=== PATIENT | female | born 1965 | race Caucasian/White ===

== ENCOUNTER 2021-11-16 06:40 | Inpatient (IN) | payer BC, MEDICAID ==
[~2021-11-16] VITALS: Ht 165.1 cm; Wt 163.0 kg
[2021-11-16 08:42] LABS: Basophils # (auto) 0.1 10 ^3/uL (0-0.2); Basophils % (auto) 0.4 % (0.0-2.0); Eosinophils # (auto) 0 10 ^3/uL (0-0.8); Eosinophils % (auto) 0.3 % (0.0-7.0); Hematocrit 40.5 % (36.0-46.0); Hemoglobin 12.9 g/dL (12.2-16.2); Lymphocytes # (auto) 0.6 10 ^3/uL (0.4-5.4); Lymphocytes % (auto) 4.9 % (10.0-50.0); Mean Corpuscular Hemoglobin 28.5 pg (28.0-32.0); Mean Corpuscular Hgb Conc. 31.9 g/dL (32.0-36.0); Mean Corpuscular Volume 89.3 fL (80.0-100.0); Monocytes # (auto) 0.6 10 ^3/uL (0-1.3); Monocytes % (auto) 4.7 % (0.0-12.0); Neutrophils # (auto) 11.3 10 ^3/uL (1.6-8.6); Neutrophils % (auto) 89.7 % (37.0-80.0); Red Blood Cells 4.54 10^6/uL (4.0-5.20); Red Cell Distribution Width 15.4 % (11.8-14.3); White Blood Cell 12.6 10^3/uL (4.4-10.8)
[2021-11-16 08:48] LABS: Albumin 3.5 g/dL (3.4-5.0); Calcium 9.1 mg/dL (8.5-10.1); Potassium 4.2 mmol/L (3.5-5.1)
[2021-11-16 08:51] LABS: BUN/Creatinine Ratio 14.6; Bilirubin, Total 0.3 mg/dL (0.2-1.0); Total Protein 7.4 g/dL (6.4-8.2)
[2021-11-16] MEDS ORDERED: SILVER SULFADIAZINE 1 % TOPICAL CREAM 50GM TOP ONE (11:15)
[2021-11-16] MEDS ORDERED: SODIUM CHLORIDE 0.9% 500 ML IV ONE (11:15)
[2021-11-16] MEDS ORDERED: SODIUM CHLORIDE 0.9% 1,000 ML IV ONE (11:15)
[2021-11-16] MEDS ORDERED: CLINDAMYCIN 900MG IV 50 ML IV ONE (11:15)
[2021-11-16] MEDS ORDERED: HYDROcodone-ACET 5/325MG TAB PO ONE (13:15)
[2021-11-16 15:00] LABS: Lactic Acid w/Reflex 2.1 mmol/L (0.4-2.0)
[2021-11-16] MEDS ORDERED: ACETAMINOPHEN 325 MG TAB PO PRN (16:45)
[2021-11-16] MEDS ORDERED: DOCUSATE SOD 100 MG CAP PO PRN (16:45)
[2021-11-16] MEDS ORDERED: PIPERACILLIN-TAZOB 3.375GM 100 ML IV SCH ×2 (16:45→17:15)
[2021-11-16] MEDS ORDERED: ONDANSETRON HCL 4 MG/2 ML VIAL IV PRN (16:45)
[2021-11-16] MEDS ORDERED: VANCOMYCIN PER PHARMACY 0 MG IV SCH (17:45)
[2021-11-16] MEDS ORDERED: PIPERACILLIN-TAZOB 3.375GM 100 ML IV ONE (18:00)
[2021-11-16] MEDS: VANCOMYCIN 1GM/250ML 250 ML IV SCH (18:37)
[2021-11-16] MEDS: HYDROcodone-ACET 5/325MG TAB PO PRN (18:47)
[2021-11-16 23:48] VITALS: BP 130/61
[2021-11-17] MEDS: HYDROcodone-ACET 5/325MG TAB PO PRN ×3 (00:31→21:40)
[2021-11-17] MEDS: GABAPENTIN 300 MG CAP PO SCH ×3 (00:31→21:33)
[2021-11-17] MEDS: PIPERACILLIN-TAZOB 3.375GM 100 ML IV SCH ×4 (00:59→21:33)
[2021-11-17] MEDS: VANCOMYCIN 1GM/250ML 250 ML IV SCH ×2 (04:32→15:07)
[2021-11-17 05:00] VITALS: BP 143/73
[2021-11-17 07:07] LABS: Basophils # (auto) 0 10 ^3/uL (0-0.2); Basophils % (auto) 0.2 % (0.0-2.0); Eosinophils # (auto) 0.1 10 ^3/uL (0-0.8); Eosinophils % (auto) 0.9 % (0.0-7.0); Hematocrit 34.8 % (36.0-46.0); Hemoglobin 11.6 g/dL (12.2-16.2); Lymphocytes # (auto) 0.7 10 ^3/uL (0.4-5.4); Lymphocytes % (auto) 6.4 % (10.0-50.0); Mean Corpuscular Hemoglobin 29.4 pg (28.0-32.0); Mean Corpuscular Hgb Conc. 33.3 g/dL (32.0-36.0); Mean Corpuscular Volume 88.4 fL (80.0-100.0); Monocytes # (auto) 0.7 10 ^3/uL (0-1.3); Monocytes % (auto) 6.2 % (0.0-12.0); Neutrophils # (auto) 9.9 10 ^3/uL (1.6-8.6); Neutrophils % (auto) 86.3 % (37.0-80.0); Nucleated Red Blood Cells % 0.1 %; Red Blood Cells 3.93 10^6/uL (4.0-5.20); Red Cell Distribution Width 15.3 % (11.8-14.3); White Blood Cell 11.5 10^3/uL (4.4-10.8)
[2021-11-17 07:21] LABS: Albumin 2.8 g/dL (3.4-5.0); Calcium 8.6 mg/dL (8.5-10.1)
[2021-11-17 07:24] LABS: BUN/Creatinine Ratio 18.2
[2021-11-17 07:27] LABS: Bilirubin, Total 0.5 mg/dL (0.2-1.0); Total Protein 6.1 g/dL (6.4-8.2)
[2021-11-17 08:49] VITALS: BP 128/85
[2021-11-17] MEDS: ENOXAPARIN SOD 40 MG/0.4 ML SYRINGE SC SCH (09:34)
[2021-11-17] MEDS: METOPROLOL SUCCINATE XL 50 MG TAB PO SCH (09:35)
[2021-11-17] MEDS: SERTRALINE HCL 50 MG TAB PO SCH (09:35)
[2021-11-17 13:07] VITALS: BP 128/72
[2021-11-17] MEDS ORDERED: SIMV10TA84 PO (15:07)
[2021-11-17] MEDS ORDERED: NAPR375T27 PO (15:07)
[2021-11-17] MEDS ORDERED: SERT50TA19 PO (15:07)
[2021-11-17] MEDS ORDERED: METO25TA93 PO (15:07)
[2021-11-17] MEDS ORDERED: HYDR-4902 PO (15:07)
[2021-11-17] MEDS ORDERED: GABA300C10 PO (15:07)
[2021-11-17 16:58] VITALS: BP 143/62
[2021-11-17] MEDS: FUROSEMIDE 40 MG/4 ML VIAL IV SCH (18:39)
[2021-11-17 23:56] VITALS: BP 141/66
[2021-11-18] MEDS: VANCOMYCIN 1GM/250ML 250 ML IV SCH ×3 (01:49→21:08)
[2021-11-18] MEDS: PIPERACILLIN-TAZOB 3.375GM 100 ML IV SCH (05:13)
[2021-11-18] MEDS: FUROSEMIDE 40 MG/4 ML VIAL IV SCH ×2 (05:13→17:25)
[2021-11-18 06:02] VITALS: BP 110/50
[2021-11-18 09:03] VITALS: BP 119/68
[2021-11-18] MEDS: ENOXAPARIN SOD 40 MG/0.4 ML SYRINGE SC SCH (09:10)
[2021-11-18] MEDS: METOPROLOL SUCCINATE XL 50 MG TAB PO SCH (09:11)
[2021-11-18] MEDS: SERTRALINE HCL 50 MG TAB PO SCH (09:11)
[2021-11-18] MEDS: MORPHINE SULFATE INJ 2 MG/ml SYRG IV PRN ×2 (09:12→15:00)
[2021-11-18] MEDS: GABAPENTIN 300 MG CAP PO SCH ×2 (10:28→22:01)
[2021-11-18 12:06] VITALS: BP 134/70
[2021-11-18 17:00] VITALS: BP 125/50
[2021-11-18] MEDS ORDERED: cefTRIAXone 1GM/50ML D5W 50 ML IV ONE (17:30)
[2021-11-18 22:00] VITALS: BP 139/72
[2021-11-19 05:00] VITALS: BP 130/73
[2021-11-19 05:39] LABS: Basophils # (auto) 0.1 10 ^3/uL (0-0.2); Basophils % (auto) 0.8 % (0.0-2.0); Eosinophils # (auto) 0.1 10 ^3/uL (0-0.8); Eosinophils % (auto) 1.3 % (0.0-7.0); Hematocrit 35.2 % (36.0-46.0); Hemoglobin 11.9 g/dL (12.2-16.2); Lymphocytes # (auto) 1.1 10 ^3/uL (0.4-5.4); Lymphocytes % (auto) 12.9 % (10.0-50.0); Mean Corpuscular Hemoglobin 29.6 pg (28.0-32.0); Mean Corpuscular Hgb Conc. 33.9 g/dL (32.0-36.0); Mean Corpuscular Volume 87.2 fL (80.0-100.0); Monocytes # (auto) 0.5 10 ^3/uL (0-1.3); Monocytes % (auto) 5.7 % (0.0-12.0); Neutrophils # (auto) 6.4 10 ^3/uL (1.6-8.6); Neutrophils % (auto) 79.3 % (37.0-80.0); Nucleated Red Blood Cells % 0.1 %; Red Blood Cells 4.04 10^6/uL (4.0-5.20); Red Cell Distribution Width 15.1 % (11.8-14.3); White Blood Cell 8.1 10^3/uL (4.4-10.8)
[2021-11-19] MEDS: FUROSEMIDE 40 MG/4 ML VIAL IV SCH ×2 (05:57→18:00)
[2021-11-19] MEDS: VANCOMYCIN 1GM/250ML 250 ML IV SCH ×2 (05:58→17:00)
[2021-11-19 05:59] LABS: Calcium 8.8 mg/dL (8.5-10.1)
[2021-11-19 06:02] LABS: BUN/Creatinine Ratio 17.1
[2021-11-19 06:39] LABS: Potassium 2.9 mmol/L (3.5-5.1)
[2021-11-19] MEDS ORDERED: POTASSIUM EFFERVESENT TAB 25 MEQ PO ONE (07:30)
[2021-11-19] MEDS ORDERED: POTASSIUM CHL 20MEQ/100ML 100 ML IV ONE (07:30)
[2021-11-19 09:00] VITALS: BP 117/66
[2021-11-19] MEDS: cefTRIAXone 1GM/50ML D5W 50 ML IV SCH (09:00)
[2021-11-19] MEDS: SERTRALINE HCL 50 MG TAB PO SCH (09:09)
[2021-11-19] MEDS: METOPROLOL SUCCINATE XL 50 MG TAB PO SCH (09:09)
[2021-11-19] MEDS: ENOXAPARIN SOD 40 MG/0.4 ML SYRINGE SC SCH (09:10)
[2021-11-19] MEDS: MORPHINE SULFATE INJ 2 MG/ml SYRG IV PRN ×2 (09:12→13:00)
[2021-11-19] MEDS: GABAPENTIN 300 MG CAP PO SCH ×2 (10:00→22:31)
[2021-11-19] MEDS: NYSTATIN TOPICAL POWDER 15GM TOP SCH ×2 (12:00→22:31)
[2021-11-19 13:00] VITALS: BP 123/71
[2021-11-19] MEDS ORDERED: IOHEXOL 350 MG/ML 100ML IJ ONE (13:17)
[2021-11-19 16:55] VITALS: BP 131/81
[2021-11-19 22:00] VITALS: BP 122/74
[2021-11-20] MEDS: VANCOMYCIN 1GM/250ML 250 ML IV SCH ×2 (02:12→15:05)
[2021-11-20 04:52] VITALS: BP 114/72
[2021-11-20] MEDS: FUROSEMIDE 40 MG/4 ML VIAL IV SCH ×2 (05:57→18:00)
[2021-11-20 09:00] VITALS: BP 110/75
[2021-11-20] MEDS: cefTRIAXone 1GM/50ML D5W 50 ML IV SCH (10:00)
[2021-11-20] MEDS: GABAPENTIN 300 MG CAP PO SCH (10:00)
[2021-11-20] MEDS: METOPROLOL SUCCINATE XL 50 MG TAB PO SCH (10:01)
[2021-11-20] MEDS: SERTRALINE HCL 50 MG TAB PO SCH (10:01)
[2021-11-20] MEDS: ENOXAPARIN SOD 40 MG/0.4 ML SYRINGE SC SCH (10:01)
[2021-11-20] MEDS: NYSTATIN TOPICAL POWDER 15GM TOP SCH (10:02)
[2021-11-20 13:00] VITALS: BP 121/73
[2021-11-20] MEDS ORDERED: SULFAMETHOX W/TRIMETH(800/160MG) DS TAB PO ONE (14:30)
[2021-11-20] MEDS ORDERED: SULF400T11 PO (15:10)
[2021-11-20 16:58] VITALS: BP 113/63
== END 2021-11-20 19:00 | disposition home health service (06) | DRG 603 ==
LOC: ER 06:40 → OVERFLOW 16:39 → CENTRAL 23:34
PROVIDERS: ADMIT Internal Medicine; ATTEND Internal Medicine
DX: L03.116 Cellulitis of left lower limb (principal); Z68.43 Body mass index [BMI] 50.0-59.9, adult; E87.2 Acidosis; L03.115 Cellulitis of right lower limb; E66.01 Morbid (severe) obesity due to excess calories; E78.5 Hyperlipidemia, unspecified; F17.210 Nicotine dependence, cigarettes, uncomplicated; F32.A Depression, unspecified; G62.9 Polyneuropathy, unspecified; I10 Essential (primary) hypertension; J44.9 Chronic obstructive pulmonary disease, unspecified; I73.9 Peripheral vascular disease, unspecified; Z20.822 Contact with and (suspected) exposure to COVID-19; I87.2 Venous insufficiency (chronic) (peripheral); Z90.710 Acquired absence of both cervix and uterus
CPT/HCPCS: 36415; 71046; 75635; 80048; 80053; 80202; 82565; 83036; 83605; 83735; 85025; 87040; 87077; 87186; 87205; 93005; 93306; 93925; 96361; 96365; G0378; J0696; J2543; J3480; J3490

== ENCOUNTER 2022-04-07 11:34 | Inpatient (IN) | payer OTHER ==
[~2022-04-07] VITALS: Ht 170.2 cm; Wt 166.5 kg
[~2022-04-07 11:34] MED LIST: GABA300C10 PO; HYDR-4902 PO; METO25TA93 PO; NAPR375T27 PO; SERT50TA19 PO; SIMV10TA84 PO; SULF400T11 PO
[2022-04-07 13:09] LABS: Basophils # (auto) 0.1 10 ^3/uL (0-0.2); Basophils % (auto) 0.7 % (0.0-2.0); Eosinophils # (auto) 0.1 10 ^3/uL (0-0.8); Eosinophils % (auto) 1.5 % (0.0-7.0); Hematocrit 43.8 % (36.0-46.0); Hemoglobin 14.7 g/dL (12.2-16.2); Lymphocytes % (auto) 11.4 % (10.0-50.0); Mean Corpuscular Hgb Conc. 33.6 g/dL (32.0-36.0); Mean Corpuscular Volume 92.5 fL (80.0-100.0); Monocytes # (auto) 0.3 10 ^3/uL (0-1.3); Monocytes % (auto) 3.6 % (0.0-12.0); Neutrophils # (auto) 7.1 10 ^3/uL (1.6-8.6); Neutrophils % (auto) 82.8 % (37.0-80.0); Nucleated Red Blood Cells % 0.3 %; Red Blood Cells 4.73 10^6/uL (4.0-5.20); Red Cell Distribution Width 15.3 % (11.8-14.3); White Blood Cell 8.6 10^3/uL (4.4-10.8)
[2022-04-07 13:12] LABS: Albumin 4.3 g/dL (3.4-5.0); Calcium 9.3 mg/dL (8.5-10.1); Potassium 3.8 mmol/L (3.5-5.1)
[2022-04-07 13:15] LABS: BUN/Creatinine Ratio 15.9; Bilirubin, Total 0.6 mg/dL (0.2-1.0); Total Protein 7.8 g/dL (6.4-8.2)
[2022-04-07 14:45] LABS: Urine Bacteria FEW /hpf (None Seen); Urine Blood Negative /uL (Negative); Urine Specific Gravity 1.007 (1.001-1.035); Urine WBC 8 /hpf (0 - 5)
[2022-04-07] MEDS ORDERED: HYDROcodone-ACET 10/325MG TAB PO ONE (14:45)
[2022-04-07 15:49] LABS: Magnesium 2.2 mg/dL (1.6-2.6)
[2022-04-07 15:58] LABS: CRP High Sensitivity 6.66 mg/dL (< 0.3)
[2022-04-07] MEDS ORDERED: ACETAMINOPHEN 325 MG TAB PO PRN (16:30)
[2022-04-07] MEDS ORDERED: ONDANSETRON HCL 4 MG/2 ML VIAL IV PRN (16:30)
[2022-04-07] MEDS ORDERED: DOCUSATE SOD 100 MG CAP PO PRN (16:30)
[2022-04-07] MEDS: CLINDAMYCIN 600MG IV 50 ML IV SCH (18:08)
[2022-04-07] MEDS: HYDROcodone-ACET 5/325MG TAB PO PRN (20:10)
[2022-04-07] MEDS: GABAPENTIN 300 MG CAP PO SCH (23:16)
[2022-04-07] MEDS: cefTRIAXone 1GM/50ML D5W 50 ML IV SCH (23:40)
[2022-04-08] MEDS: HYDROcodone-ACET 5/325MG TAB PO PRN ×4 (00:04→22:13)
[2022-04-08 00:30] VITALS: BP 153/72
[2022-04-08] MEDS: CLINDAMYCIN 600MG IV 50 ML IV SCH ×3 (00:47→16:49)
[2022-04-08 05:00] VITALS: BP 154/82
[2022-04-08 06:11] LABS: Basophils # (auto) 0 10 ^3/uL (0-0.2); Basophils % (auto) 0.4 % (0.0-2.0); Eosinophils # (auto) 0.1 10 ^3/uL (0-0.8); Eosinophils % (auto) 1.5 % (0.0-7.0); Hematocrit 40.9 % (36.0-46.0); Hemoglobin 13.7 g/dL (12.2-16.2); Lymphocytes # (auto) 0.9 10 ^3/uL (0.4-5.4); Lymphocytes % (auto) 10.5 % (10.0-50.0); Mean Corpuscular Hemoglobin 31.4 pg (28.0-32.0); Mean Corpuscular Hgb Conc. 33.4 g/dL (32.0-36.0); Monocytes # (auto) 0.5 10 ^3/uL (0-1.3); Monocytes % (auto) 5.8 % (0.0-12.0); Neutrophils % (auto) 81.8 % (37.0-80.0); Nucleated Red Blood Cells % 0.7 %; Red Blood Cells 4.35 10^6/uL (4.0-5.20); Red Cell Distribution Width 15.1 % (11.8-14.3); White Blood Cell 8.6 10^3/uL (4.4-10.8)
[2022-04-08 06:22] LABS: Albumin 3.5 g/dL (3.4-5.0); BUN/Creatinine Ratio 16.3; Bilirubin, Total 0.5 mg/dL (0.2-1.0); Calcium 8.7 mg/dL (8.5-10.1); Total Protein 6.8 g/dL (6.4-8.2)
[2022-04-08 09:00] VITALS: BP 142/82
[2022-04-08] MEDS: GABAPENTIN 300 MG CAP PO SCH ×2 (09:33→21:49)
[2022-04-08] MEDS: SERTRALINE HCL 50 MG TAB PO SCH (09:34)
[2022-04-08] MEDS: METOPROLOL SUCCINATE XL 50 MG TAB PO SCH (09:49)
[2022-04-08] MEDS ORDERED: FUROSEMIDE 20 MG/2 ML VIAL IV SCH (10:00)
[2022-04-08] MEDS ORDERED: PANTOPRAZOLE 40 MG/10 ML VIAL INJ IV SCH (10:00)
[2022-04-08] MEDS: PATIENTS OWN MEDICATION (Simvastatin 10 MG) PO SCH (10:00)
[2022-04-08 12:54] VITALS: BP 147/103
[2022-04-08 16:48] VITALS: BP 107/56
[2022-04-08] MEDS: cefTRIAXone 1GM/50ML D5W 50 ML IV SCH (21:50)
[2022-04-08] MEDS: FUROSEMIDE 20 MG/2 ML VIAL IV SCH (21:50)
[2022-04-08 22:00] VITALS: BP 117/63
[2022-04-09] MEDS: CLINDAMYCIN 600MG IV 50 ML IV SCH ×3 (00:43→16:42)
[2022-04-09 04:30] VITALS: BP 129/72
[2022-04-09] MEDS: HYDROcodone-ACET 5/325MG TAB PO PRN ×3 (06:59→22:24)
[2022-04-09] MEDS: GABAPENTIN 300 MG CAP PO SCH ×2 (08:25→22:18)
[2022-04-09] MEDS: METOPROLOL SUCCINATE XL 50 MG TAB PO SCH (08:25)
[2022-04-09] MEDS: FUROSEMIDE 20 MG/2 ML VIAL IV SCH ×2 (08:25→22:20)
[2022-04-09] MEDS: SERTRALINE HCL 50 MG TAB PO SCH (08:25)
[2022-04-09] MEDS: PATIENTS OWN MEDICATION (Simvastatin 10 MG) PO SCH (08:26)
[2022-04-09 08:30] VITALS: BP 144/88
[2022-04-09 12:37] VITALS: BP 134/77
[2022-04-09 17:00] VITALS: BP 100/69
[2022-04-09 20:00] VITALS: BP 149/74
[2022-04-09 22:00] VITALS: BP 149/74
[2022-04-09] MEDS: cefTRIAXone 1GM/50ML D5W 50 ML IV SCH (22:29)
[2022-04-10] MEDS: CLINDAMYCIN 600MG IV 50 ML IV SCH ×3 (00:31→17:08)
[2022-04-10 05:00] VITALS: BP 144/68
[2022-04-10] MEDS: HYDROcodone-ACET 5/325MG TAB PO PRN ×3 (07:00→22:26)
[2022-04-10 09:00] VITALS: BP 142/92
[2022-04-10] MEDS: SERTRALINE HCL 50 MG TAB PO SCH (09:29)
[2022-04-10] MEDS: GABAPENTIN 300 MG CAP PO SCH ×2 (09:29→22:27)
[2022-04-10] MEDS: FUROSEMIDE 20 MG/2 ML VIAL IV SCH ×2 (09:30→22:27)
[2022-04-10] MEDS: METOPROLOL SUCCINATE XL 50 MG TAB PO SCH (09:30)
[2022-04-10] MEDS: PATIENTS OWN MEDICATION (Simvastatin 10 MG) PO SCH (10:00)
[2022-04-10 13:00] VITALS: BP 140/88
[2022-04-10 16:54] VITALS: BP 149/88
[2022-04-10 22:00] VITALS: BP 128/74
[2022-04-10] MEDS: cefTRIAXone 1GM/50ML D5W 50 ML IV SCH (22:28)
[2022-04-11] MEDS: CLINDAMYCIN 600MG IV 50 ML IV SCH ×3 (01:12→17:38)
[2022-04-11 05:00] VITALS: BP 137/78
[2022-04-11 09:20] VITALS: BP 136/83
[2022-04-11] MEDS: FUROSEMIDE 20 MG/2 ML VIAL IV SCH ×2 (09:31→22:01)
[2022-04-11] MEDS: GABAPENTIN 300 MG CAP PO SCH ×2 (09:31→22:00)
[2022-04-11] MEDS: METOPROLOL SUCCINATE XL 50 MG TAB PO SCH (09:32)
[2022-04-11] MEDS: SERTRALINE HCL 50 MG TAB PO SCH (09:32)
[2022-04-11] MEDS: HYDROcodone-ACET 5/325MG TAB PO PRN ×2 (09:46→20:09)
[2022-04-11] MEDS: PATIENTS OWN MEDICATION (Simvastatin 10 MG) PO SCH (10:00)
[2022-04-11 12:52] VITALS: BP 145/79
[2022-04-11 17:17] VITALS: BP 143/75
[2022-04-11 21:30] VITALS: BP 140/69
[2022-04-11] MEDS: cefTRIAXone 1GM/50ML D5W 50 ML IV SCH (22:02)
[2022-04-12] MEDS: CLINDAMYCIN 600MG IV 50 ML IV SCH ×3 (00:24→18:07)
[2022-04-12 05:00] VITALS: BP 139/61
[2022-04-12] MEDS: HYDROcodone-ACET 5/325MG TAB PO PRN ×2 (05:49→19:52)
[2022-04-12 09:00] VITALS: BP 101/45
[2022-04-12] MEDS: PATIENTS OWN MEDICATION (Simvastatin 10 MG) PO SCH (09:34)
[2022-04-12] MEDS: FUROSEMIDE 20 MG/2 ML VIAL IV SCH ×2 (09:34→21:25)
[2022-04-12] MEDS: GABAPENTIN 300 MG CAP PO SCH ×2 (09:45→21:17)
[2022-04-12] MEDS: SERTRALINE HCL 50 MG TAB PO SCH (10:00)
[2022-04-12] MEDS: METOPROLOL SUCCINATE XL 50 MG TAB PO SCH ×2 (10:00→18:08)
[2022-04-12 13:00] VITALS: BP 132/82
[2022-04-12 17:03] VITALS: BP 146/74
[2022-04-12 22:00] VITALS: BP 130/66
[2022-04-12] MEDS: cefTRIAXone 1GM/50ML D5W 50 ML IV SCH (22:29)
[2022-04-13] MEDS: CLINDAMYCIN 600MG IV 50 ML IV SCH ×2 (01:27→09:09)
[2022-04-13 05:00] VITALS: BP 138/71
[2022-04-13] MEDS: HYDROcodone-ACET 5/325MG TAB PO PRN (05:20)
[2022-04-13 08:10] VITALS: BP 113/66
[2022-04-13 09:00] VITALS: BP 113/66
[2022-04-13] MEDS: FUROSEMIDE 20 MG/2 ML VIAL IV SCH (09:10)
[2022-04-13] MEDS: GABAPENTIN 300 MG CAP PO SCH (09:10)
[2022-04-13] MEDS: METOPROLOL SUCCINATE XL 50 MG TAB PO SCH (09:11)
[2022-04-13] MEDS: SERTRALINE HCL 50 MG TAB PO SCH (09:12)
[2022-04-13] MEDS: PATIENTS OWN MEDICATION (Simvastatin 10 MG) PO SCH (09:12)
[2022-04-13] MEDS ORDERED: FURO1TAB33 PO (12:59)
[2022-04-13] MEDS ORDERED: GABA300C10 PO (12:59)
[2022-04-13] MEDS ORDERED: CLIN300C8 PO (12:59)
[2022-04-13 13:36] VITALS: BP 132/92
== END 2022-04-13 14:52 | disposition home or self-care (01) | DRG 603 ==
LOC: ER 11:34 → OVERFLOW 16:28 → EAST 23:42
PROVIDERS: ADMIT Nurse Practitioner Family; ATTEND Internal Medicine
DX: L03.115 Cellulitis of right lower limb (principal); I10 Essential (primary) hypertension; L03.116 Cellulitis of left lower limb; I73.9 Peripheral vascular disease, unspecified; J44.9 Chronic obstructive pulmonary disease, unspecified; I87.8 Other specified disorders of veins; F17.210 Nicotine dependence, cigarettes, uncomplicated; E66.9 Obesity, unspecified; R60.0 Localized edema; Z20.822 Contact with and (suspected) exposure to COVID-19; Z90.710 Acquired absence of both cervix and uterus
CPT/HCPCS: 36415; 80053; 81001; 83735; 83880; 84484; 85025; 86141; 87040; 87426; 93970; 96365; C9113; G0378; J0696; J3490

== ENCOUNTER 2022-05-29 16:14 | Inpatient (IN) | payer OTHER ==
[~2022-05-29] VITALS: Ht 167.6 cm; Wt 166.0 kg
[~2022-05-29 16:14] MED LIST changes: +CLIN300C8 PO; +FURO1TAB33 PO; -SULF400T11 PO
[2022-05-29 17:12] LABS: Basophils # (auto) 0.1 10 ^3/uL (0-0.2); Basophils % (auto) 1.1 % (0.0-2.0); Eosinophils # (auto) 0.1 10 ^3/uL (0-0.8); Hematocrit 39.3 % (36.0-46.0); Hemoglobin 13.7 g/dL (12.2-16.2); Lymphocytes # (auto) 0.9 10 ^3/uL (0.4-5.4); Lymphocytes % (auto) 9.6 % (10.0-50.0); Mean Corpuscular Hemoglobin 31.7 pg (28.0-32.0); Mean Corpuscular Hgb Conc. 34.9 g/dL (32.0-36.0); Mean Corpuscular Volume 90.9 fL (80.0-100.0); Monocytes # (auto) 0.4 10 ^3/uL (0-1.3); Monocytes % (auto) 4.3 % (0.0-12.0); Neutrophils # (auto) 7.5 10 ^3/uL (1.6-8.6); Nucleated Red Blood Cells % 0.1 %; Red Blood Cells 4.32 10^6/uL (4.0-5.20); White Blood Cell 8.9 10^3/uL (4.4-10.8)
[2022-05-29 17:42] LABS: Albumin 3.8 g/dL (3.4-5.0); Calcium 9.4 mg/dL (8.5-10.1); Potassium 3.6 mmol/L (3.5-5.1)
[2022-05-29 17:46] LABS: BUN/Creatinine Ratio 15.1; Bilirubin, Total 0.6 mg/dL (0.2-1.0); Total Protein 8.2 g/dL (6.4-8.2)
[2022-05-29] MEDS ORDERED: FUROSEMIDE 40 MG/4 ML VIAL IV ONE (19:00)
[2022-05-29] MEDS ORDERED: AZITHROMYCIN 500MG/ 250ML 250 ML IV ONE (19:00)
[2022-05-29] MEDS ORDERED: ALBUTEROL SULF 2.5 MG/0.5ML(0.5%) NEB SOLN NEB ONE (19:00)
[2022-05-29] MEDS ORDERED: cefTRIAXone 1GM/50ML D5W 50 ML IV ONE (19:00)
[2022-05-29] MEDS ORDERED: ONDANSETRON HCL 4 MG/2 ML VIAL IV PRN (20:00)
[2022-05-29] MEDS ORDERED: ACETAMINOPHEN 325 MG TAB PO PRN (20:00)
[2022-05-29] MEDS ORDERED: TEMAZEPAM 15 MG CAP PO PRN (20:00)
[2022-05-29] MEDS ORDERED: ALBUTEROL SULF 2.5 MG/0.5ML(0.5%) NEB SOLN NEB PRN (20:00)
[2022-05-29 20:55] VITALS: BP 153/98
[2022-05-29] MEDS ORDERED: CLINDAMYCIN 300MG IV 100 ML IV SCH (22:00)
[2022-05-30] MEDS: ATORVASTATIN 20 MG TAB PO SCH ×2 (00:31→21:11)
[2022-05-30] MEDS: GABAPENTIN 300 MG CAP PO SCH ×4 (00:32→21:11)
[2022-05-30] MEDS: HYDROcodone-ACET 5/325MG TAB PO PRN ×3 (00:32→14:07)
[2022-05-30 05:48] LABS: Urine Bacteria NONE SEEN /hpf (None Seen); Urine Blood Negative /uL (Negative); Urine Hyaline Cast FEW /lpf (0 - 2); Urine Specific Gravity 1.007 (1.001-1.035); Urine WBC 1 /hpf (0 - 5)
[2022-05-30] MEDS: FUROSEMIDE 20 MG/2 ML VIAL IV SCH ×2 (05:54→18:36)
[2022-05-30 06:10] LABS: Basophils # (auto) 0 10 ^3/uL (0-0.2); Basophils % (auto) 0.5 % (0.0-2.0); Eosinophils # (auto) 0.1 10 ^3/uL (0-0.8); Hematocrit 24.6 % (36.0-46.0); Hemoglobin 7.9 g/dL (12.2-16.2); Lymphocytes # (auto) 0.5 10 ^3/uL (0.4-5.4); Lymphocytes % (auto) 7.7 % (10.0-50.0); Mean Corpuscular Hemoglobin 31.9 pg (28.0-32.0); Mean Corpuscular Hgb Conc. 32.3 g/dL (32.0-36.0); Monocytes # (auto) 0.4 10 ^3/uL (0-1.3); Monocytes % (auto) 5.4 % (0.0-12.0); Neutrophils # (auto) 5.6 10 ^3/uL (1.6-8.6); Neutrophils % (auto) 85.4 % (37.0-80.0); Nucleated Red Blood Cells % 0.5 %; Red Blood Cells 2.48 10^6/uL (4.0-5.20); Red Cell Distribution Width 17.7 % (11.8-14.3); White Blood Cell 6.5 10^3/uL (4.4-10.8)
[2022-05-30] MEDS ORDERED: CLINDAMYCIN 300MG IV 100 ML IV SCH (10:00)
[2022-05-30] MEDS: SERTRALINE HCL 50 MG TAB PO SCH (10:45)
[2022-05-30] MEDS: METOPROLOL SUCCINATE XL 50 MG TAB PO SCH (10:48)
[2022-05-30] MEDS: ENOXAPARIN SOD 40 MG/0.4 ML SYRINGE SC SCH (10:49)
[2022-05-30 12:00] VITALS: BP 129/71
[2022-05-30] MEDS: SILVER SULFADIAZINE 1 % TOPICAL CREAM 50GM TOP SCH (13:00)
[2022-05-30] MEDS ORDERED: VANCOMYCIN PER PHARMACY 0 MG IV SCH (14:30)
[2022-05-30] MEDS ORDERED: VANCOMYCIN 1GM/250ML 250 ML IV ONE (15:00)
[2022-05-30 16:52] VITALS: BP 124/81
[2022-05-30 22:00] VITALS: BP 120/67
[2022-05-31] MEDS: VANCOMYCIN 1GM/250ML 250 ML IV SCH ×3 (01:34→22:54)
[2022-05-31 05:00] VITALS: BP 108/63
[2022-05-31] MEDS: GABAPENTIN 300 MG CAP PO SCH ×4 (05:24→21:49)
[2022-05-31] MEDS: FUROSEMIDE 20 MG/2 ML VIAL IV SCH ×2 (05:25→17:29)
[2022-05-31 06:49] LABS: Basophils # (auto) 0 10 ^3/uL (0-0.2); Basophils % (auto) 0.3 % (0.0-2.0); Eosinophils # (auto) 0.1 10 ^3/uL (0-0.8); Eosinophils % (auto) 1.2 % (0.0-7.0); Hematocrit 38.1 % (36.0-46.0); Hemoglobin 12.9 g/dL (12.2-16.2); Lymphocytes # (auto) 0.7 10 ^3/uL (0.4-5.4); Lymphocytes % (auto) 7.2 % (10.0-50.0); Mean Corpuscular Hemoglobin 31.3 pg (28.0-32.0); Mean Corpuscular Hgb Conc. 33.8 g/dL (32.0-36.0); Mean Corpuscular Volume 92.5 fL (80.0-100.0); Monocytes # (auto) 0.4 10 ^3/uL (0-1.3); Monocytes % (auto) 4.8 % (0.0-12.0); Neutrophils % (auto) 86.5 % (37.0-80.0); Nucleated Red Blood Cells % 0.2 %; Red Blood Cells 4.12 10^6/uL (4.0-5.20); Red Cell Distribution Width 17.2 % (11.8-14.3); White Blood Cell 9.2 10^3/uL (4.4-10.8)
[2022-05-31 07:27] LABS: Potassium 3.4 mmol/L (3.5-5.1)
[2022-05-31 07:35] LABS: BUN/Creatinine Ratio 15.8; Calcium 9.2 mg/dL (8.5-10.1)
[2022-05-31 08:39] VITALS: BP 130/69
[2022-05-31] MEDS: METOPROLOL SUCCINATE XL 50 MG TAB PO SCH (09:32)
[2022-05-31] MEDS: SERTRALINE HCL 50 MG TAB PO SCH (09:32)
[2022-05-31] MEDS: ENOXAPARIN SOD 40 MG/0.4 ML SYRINGE SC SCH (09:32)
[2022-05-31] MEDS: levoFLOXacin 500MG 100 ML IV SCH (09:32)
[2022-05-31] MEDS: HYDROcodone-ACET 5/325MG TAB PO PRN (09:33)
[2022-05-31] MEDS: SILVER SULFADIAZINE 1 % TOPICAL CREAM 50GM TOP SCH (09:33)
[2022-05-31 14:30] VITALS: BP 127/64
[2022-05-31] MEDS ORDERED: POTASSIUM EFFERVESENT TAB 25 MEQ PO ONE (14:30)
[2022-05-31 17:17] VITALS: BP 134/70
[2022-05-31] MEDS: ATORVASTATIN 20 MG TAB PO SCH (21:49)
[2022-05-31 22:00] VITALS: BP 137/68
[2022-06-01 05:00] VITALS: BP 133/66
[2022-06-01] MEDS: GABAPENTIN 300 MG CAP PO SCH ×3 (05:34→21:19)
[2022-06-01] MEDS: FUROSEMIDE 20 MG/2 ML VIAL IV SCH ×2 (05:35→17:28)
[2022-06-01 06:12] LABS: Basophils # (auto) 0 10 ^3/uL (0-0.2); Basophils % (auto) 0.4 % (0.0-2.0); Eosinophils # (auto) 0.2 10 ^3/uL (0-0.8); Eosinophils % (auto) 2.2 % (0.0-7.0); Hematocrit 39.3 % (36.0-46.0); Hemoglobin 13.1 g/dL (12.2-16.2); Lymphocytes # (auto) 1.1 10 ^3/uL (0.4-5.4); Lymphocytes % (auto) 12.4 % (10.0-50.0); Mean Corpuscular Hemoglobin 30.9 pg (28.0-32.0); Mean Corpuscular Hgb Conc. 33.3 g/dL (32.0-36.0); Mean Corpuscular Volume 92.8 fL (80.0-100.0); Monocytes # (auto) 0.5 10 ^3/uL (0-1.3); Monocytes % (auto) 5.4 % (0.0-12.0); Neutrophils % (auto) 79.6 % (37.0-80.0); Nucleated Red Blood Cells % 0.3 %; Red Blood Cells 4.23 10^6/uL (4.0-5.20); Red Cell Distribution Width 17.2 % (11.8-14.3); White Blood Cell 8.8 10^3/uL (4.4-10.8)
[2022-06-01 06:28] LABS: Calcium 8.9 mg/dL (8.5-10.1); Potassium 3.9 mmol/L (3.5-5.1)
[2022-06-01 09:00] VITALS: BP 124/72
[2022-06-01] MEDS: VANCOMYCIN 1GM/250ML 250 ML IV SCH ×2 (09:17→17:28)
[2022-06-01] MEDS: METOPROLOL SUCCINATE XL 50 MG TAB PO SCH (11:20)
[2022-06-01] MEDS: levoFLOXacin 500MG 100 ML IV SCH (11:20)
[2022-06-01] MEDS: SERTRALINE HCL 50 MG TAB PO SCH (11:21)
[2022-06-01] MEDS: ENOXAPARIN SOD 40 MG/0.4 ML SYRINGE SC SCH (11:21)
[2022-06-01] MEDS: SILVER SULFADIAZINE 1 % TOPICAL CREAM 50GM TOP SCH (11:21)
[2022-06-01 13:00] VITALS: BP 150/88
[2022-06-01 17:00] VITALS: BP 121/73
[2022-06-01 20:00] VITALS: BP 135/70
[2022-06-01] MEDS: ATORVASTATIN 20 MG TAB PO SCH (21:19)
[2022-06-01] MEDS: HYDROcodone-ACET 5/325MG TAB PO PRN (21:21)
[2022-06-01 22:00] VITALS: BP 135/70
[2022-06-02] MEDS: VANCOMYCIN 1GM/250ML 250 ML IV SCH ×2 (04:05→14:19)
[2022-06-02] MEDS: HYDROcodone-ACET 5/325MG TAB PO PRN ×3 (04:11→22:30)
[2022-06-02 05:00] VITALS: BP 114/69
[2022-06-02] MEDS: GABAPENTIN 300 MG CAP PO SCH ×3 (05:35→22:26)
[2022-06-02] MEDS: FUROSEMIDE 20 MG/2 ML VIAL IV SCH ×2 (05:36→17:08)
[2022-06-02] MEDS: diphenhdrAMINE HCL 25 MG CAP PO PRN ×3 (05:42→19:17)
[2022-06-02 08:58] VITALS: BP 103/52
[2022-06-02] MEDS: levoFLOXacin 500MG 100 ML IV SCH (09:15)
[2022-06-02] MEDS: ENOXAPARIN SOD 40 MG/0.4 ML SYRINGE SC SCH (09:15)
[2022-06-02] MEDS: METOPROLOL SUCCINATE XL 50 MG TAB PO SCH (09:16)
[2022-06-02] MEDS: SERTRALINE HCL 50 MG TAB PO SCH (09:16)
[2022-06-02] MEDS: SILVER SULFADIAZINE 1 % TOPICAL CREAM 50GM TOP SCH (09:24)
[2022-06-02 13:32] VITALS: BP 114/62
[2022-06-02 17:00] VITALS: BP 109/67
[2022-06-02 21:12] VITALS: BP 125/83
[2022-06-02] MEDS: ATORVASTATIN 20 MG TAB PO SCH (22:26)
[2022-06-02 22:50] VITALS: BP 102/40
[2022-06-03] MEDS: VANCOMYCIN 1GM/250ML 250 ML IV SCH ×2 (00:05→10:05)
[2022-06-03 04:51] VITALS: BP 106/57
[2022-06-03 06:49] LABS: Calcium 9.4 mg/dL (8.5-10.1); Potassium 3.6 mmol/L (3.5-5.1)
[2022-06-03] MEDS: GABAPENTIN 300 MG CAP PO SCH ×3 (07:02→21:19)
[2022-06-03] MEDS: FUROSEMIDE 20 MG/2 ML VIAL IV SCH ×2 (07:02→17:55)
[2022-06-03] MEDS: diphenhdrAMINE HCL 25 MG CAP PO PRN ×2 (07:20→15:24)
[2022-06-03] MEDS: HYDROcodone-ACET 5/325MG TAB PO PRN ×3 (08:22→21:20)
[2022-06-03 09:00] VITALS: BP 123/70
[2022-06-03] MEDS: SERTRALINE HCL 50 MG TAB PO SCH (10:04)
[2022-06-03] MEDS: ENOXAPARIN SOD 40 MG/0.4 ML SYRINGE SC SCH (10:04)
[2022-06-03] MEDS: levoFLOXacin 500MG 100 ML IV SCH (10:04)
[2022-06-03] MEDS: METOPROLOL SUCCINATE XL 50 MG TAB PO SCH (10:04)
[2022-06-03] MEDS: SILVER SULFADIAZINE 1 % TOPICAL CREAM 50GM TOP SCH (10:05)
[2022-06-03 13:26] VITALS: BP 106/60
[2022-06-03 17:00] VITALS: BP 124/74
[2022-06-03] MEDS: ATORVASTATIN 20 MG TAB PO SCH (21:19)
[2022-06-03 22:00] VITALS: BP 125/62
[2022-06-04] MEDS: VANCOMYCIN 1GM/250ML 250 ML IV SCH ×2 (03:56→22:15)
[2022-06-04 05:00] VITALS: BP 116/64
[2022-06-04] MEDS: FUROSEMIDE 20 MG/2 ML VIAL IV SCH ×2 (06:38→17:09)
[2022-06-04] MEDS: diphenhdrAMINE HCL 25 MG CAP PO PRN ×3 (06:38→23:44)
[2022-06-04] MEDS: GABAPENTIN 300 MG CAP PO SCH ×3 (06:38→22:15)
[2022-06-04] MEDS: ENOXAPARIN SOD 40 MG/0.4 ML SYRINGE SC SCH (08:51)
[2022-06-04] MEDS: levoFLOXacin 500MG 100 ML IV SCH (08:51)
[2022-06-04] MEDS: METOPROLOL SUCCINATE XL 50 MG TAB PO SCH (08:53)
[2022-06-04] MEDS: SILVER SULFADIAZINE 1 % TOPICAL CREAM 50GM TOP SCH (08:53)
[2022-06-04] MEDS: SERTRALINE HCL 50 MG TAB PO SCH (08:53)
[2022-06-04 09:03] VITALS: BP 110/65
[2022-06-04 13:00] VITALS: BP 124/58
[2022-06-04] MEDS: HYDROcodone-ACET 5/325MG TAB PO PRN (13:15)
[2022-06-04] MEDS: Juven Fruit Punch Powder PACKET 28.8gm PO SCH (17:02)
[2022-06-04 17:22] VITALS: BP 134/69
[2022-06-04 22:00] VITALS: BP 109/61
[2022-06-04] MEDS: ATORVASTATIN 20 MG TAB PO SCH (22:15)
[2022-06-05 04:00] VITALS: BP 111/69
[2022-06-05] MEDS: diphenhdrAMINE HCL 25 MG CAP PO PRN (06:56)
[2022-06-05] MEDS: FUROSEMIDE 20 MG/2 ML VIAL IV SCH (06:56)
[2022-06-05] MEDS: GABAPENTIN 300 MG CAP PO SCH ×3 (06:56→21:30)
[2022-06-05 09:11] VITALS: BP 119/94
[2022-06-05] MEDS: SERTRALINE HCL 50 MG TAB PO SCH (09:26)
[2022-06-05] MEDS: METOPROLOL SUCCINATE XL 50 MG TAB PO SCH (09:29)
[2022-06-05] MEDS: levoFLOXacin 500MG 100 ML IV SCH (09:30)
[2022-06-05] MEDS: ENOXAPARIN SOD 40 MG/0.4 ML SYRINGE SC SCH (09:30)
[2022-06-05] MEDS: SILVER SULFADIAZINE 1 % TOPICAL CREAM 50GM TOP SCH (09:31)
[2022-06-05] MEDS: Juven Fruit Punch Powder PACKET 28.8gm PO SCH ×2 (09:31→19:35)
[2022-06-05 12:30] VITALS: BP 87/44
[2022-06-05 13:48] VITALS: BP 100/59
[2022-06-05 17:28] VITALS: BP 104/41
[2022-06-05] MEDS: VANCOMYCIN 1GM/250ML 250 ML IV SCH (19:35)
[2022-06-05] MEDS: ATORVASTATIN 20 MG TAB PO SCH (21:30)
[2022-06-05] MEDS: HYDROcodone-ACET 5/325MG TAB PO PRN (21:35)
[2022-06-05 22:00] VITALS: BP 93/47
[2022-06-06 05:00] VITALS: BP 110/70
[2022-06-06] MEDS: GABAPENTIN 300 MG CAP PO SCH ×2 (06:21→15:11)
[2022-06-06 06:26] LABS: Potassium 3.4 mmol/L (3.5-5.1)
[2022-06-06 06:34] LABS: Albumin 3.2 g/dL (3.4-5.0); BUN/Creatinine Ratio 26.7 (10.0-20.0); Bilirubin, Total 0.5 mg/dL (0.2-1.0); Calcium 9.1 mg/dL (8.5-10.1); Total Protein 7.8 g/dL (6.4-8.2)
[2022-06-06 09:00] VITALS: BP 112/71
[2022-06-06] MEDS: SERTRALINE HCL 50 MG TAB PO SCH (09:10)
[2022-06-06] MEDS: ENOXAPARIN SOD 40 MG/0.4 ML SYRINGE SC SCH (09:10)
[2022-06-06] MEDS: METOPROLOL SUCCINATE XL 50 MG TAB PO SCH (09:17)
[2022-06-06] MEDS: diphenhdrAMINE HCL 25 MG CAP PO PRN ×2 (09:17→10:51)
[2022-06-06] MEDS: VANCOMYCIN 1GM/250ML 250 ML IV SCH (09:18)
[2022-06-06] MEDS: Juven Fruit Punch Powder PACKET 28.8gm PO SCH ×2 (09:18→18:00)
[2022-06-06] MEDS ORDERED: FUROSEMIDE 20 MG/2 ML VIAL IV SCH (10:00)
[2022-06-06] MEDS: SILVER SULFADIAZINE 1 % TOPICAL CREAM 50GM TOP SCH (10:51)
[2022-06-06] MEDS: levoFLOXacin 500MG 100 ML IV SCH (10:51)
[2022-06-06] MEDS: HYDROcodone-ACET 5/325MG TAB PO PRN ×2 (11:01→12:38)
[2022-06-06] MEDS ORDERED: HYDR-4902 PO (11:39)
[2022-06-06] MEDS ORDERED: SACC1CAP3 PO (11:39)
[2022-06-06] MEDS ORDERED: CLIN300C8 PO (11:39)
[2022-06-06] MEDS ORDERED: GAUZMIS XX (12:39)
[2022-06-06] MEDS ORDERED: POTASSIUM CHL 20 Meq TABLET PO ONE (12:45)
[2022-06-06 13:00] VITALS: BP 124/56
[2022-06-06 16:31] VITALS: BP 112/71
== END 2022-06-06 17:25 | disposition home health service (06) | DRG 603 ==
LOC: ER 16:14 → OVERFLOW 20:03 → CENTRAL 05-30 11:19
PROVIDERS: ADMIT Nurse Practitioner; ATTEND Nurse Practitioner Acute Care
DX: L03.115 Cellulitis of right lower limb (principal); J44.1 Chronic obstructive pulmonary disease with (acute) exacerbation; Z68.44 Body mass index [BMI] 60.0-69.9, adult; L03.116 Cellulitis of left lower limb; I10 Essential (primary) hypertension; E66.01 Morbid (severe) obesity due to excess calories; F17.210 Nicotine dependence, cigarettes, uncomplicated; Z20.822 Contact with and (suspected) exposure to COVID-19; E78.5 Hyperlipidemia, unspecified; Z90.710 Acquired absence of both cervix and uterus; Z82.49 Family history of ischemic heart disease and other diseases of the circulatory system
CPT/HCPCS: 36415; 71046; 80048; 80053; 80202; 81001; 82565; 83880; 85025; 87077; 87186; 87205; 87426; 93005; 94640; 96365; 96367; 96372; 96375; G0378; J0696; J1956; J3490

== ENCOUNTER 2023-02-18 16:06 | Emergency (ER) | payer OTHER ==
[~2023-02-18] VITALS: Ht 167.6 cm; Wt 162.8 kg
[~2023-02-18 16:06] MED LIST changes: +CLIN300C70 PO; -CLIN300C8 PO; +GABA-1250 PO; -GABA300C10 PO; +GAUZMIS XX; +NAPR-957 PO; -NAPR375T27 PO; +SACC1CAP3 PO; +SERT-206 PO; -SERT50TA19 PO; +SIMV10TA20 PO; -SIMV10TA84 PO
[2023-02-18] MEDS ORDERED: HYDROmorphone HCL 2 MG/ML VL/or syr IM ONE ×2 (16:45→22:30)
[2023-02-18 17:11] LABS: Basophils # (auto) 0.1 10 ^3/uL (0-0.2); Basophils % (auto) 0.6 % (0.0-2.0); Eosinophils # (auto) 0.2 10 ^3/uL (0-0.8); Eosinophils % (auto) 1.3 % (0.0-7.0); Hematocrit 43.5 % (36.0-46.0); Hemoglobin 14.3 g/dL (12.2-16.2); Lymphocytes # (auto) 1.2 10 ^3/uL (0.4-5.4); Lymphocytes % (auto) 10.7 % (10.0-50.0); Mean Corpuscular Hemoglobin 28.9 pg (28.0-32.0); Mean Corpuscular Hgb Conc. 32.9 g/dL (32.0-36.0); Monocytes # (auto) 0.4 10 ^3/uL (0-1.3); Monocytes % (auto) 3.2 % (0.0-12.0); Neutrophils # (auto) 9.7 10 ^3/uL (1.6-8.6); Neutrophils % (auto) 84.2 % (37.0-80.0); Nucleated Red Blood Cells % 0.3 %; Red Blood Cells 4.94 10^6/uL (4.0-5.20); Red Cell Distribution Width 18.9 % (11.8-14.3); White Blood Cell 11.5 10^3/uL (4.4-10.8)
[2023-02-18 17:27] LABS: Alanine Aminotransferase 19 U/L (7-40); Albumin 4.3 g/dL (3.2-4.8); Alkaline Phosphatase 107 U/L (46-116); Anion Gap 5 (5-15); Aspartate Aminotransferase 15 U/L (13-40); BUN/Creatinine Ratio 16.1 (10.0-20.0); Bilirubin, Total 0.3 mg/dL (0.2-1.0); Blood Urea Nitrogen 14 mg/dL (9-23); Calcium 9.5 mg/dL (8.7-10.4); Carbon Dioxide 30 mmol/L (20-30); Chloride 106 mmol/L (98-107); Glucose 116 mg/dL (74-106); Lipase 29 U/L (12-53); Potassium 4.2 mmol/L (3.5-5.1); Sodium 141 mmol/L (136-145); Total Protein 7.1 g/dL (5.7-8.2)
[2023-02-18 22:26] VITALS: TEMP 97.5
[2023-02-18 22:33] VITALS: BP 149/65
[2023-02-18 23:59] LABS: Urine Bacteria FEW /hpf (None Seen); Urine Blood Negative /uL (Negative); Urine Budding Yeast MODERATE /hpf (None Seen); Urine Clarity HAZY (Clear); Urine Color Colorless (Yellow); Urine Protein, UAD Negative (Negative); Urine Specific Gravity 1.009 (1.001-1.035); Urine Urobilinogen Normal (Negative); Urine WBC 39 /hpf (0 - 5); Urine WBC Clumps PRESENT /hpf (None Seen)
[2023-02-19] MEDS ORDERED: ACE3T PO (00:39)
[2023-02-19] MEDS ORDERED: CEPH500C PO (00:39)
[2023-02-19 00:50] VITALS: PULSE 85; RESP 20; O2SAT 97
== END 2023-02-19 00:56 | disposition home or self-care (01) ==
LOC: ER 16:06
DX: L03.116 Cellulitis of left lower limb (principal); L03.115 Cellulitis of right lower limb; N39.0 Urinary tract infection, site not specified; J44.9 Chronic obstructive pulmonary disease, unspecified; E78.5 Hyperlipidemia, unspecified; I10 Essential (primary) hypertension; F17.210 Nicotine dependence, cigarettes, uncomplicated; Z90.710 Acquired absence of both cervix and uterus
CPT/HCPCS: 36415; 71045; 80053; 81001; 83605; 83690; 83735; 83880; 84484; 85025; 93970; 96372; 99285; J1170